=== PATIENT | female | born 1960 | race Caucasian/White ===

== ENCOUNTER 2021-01-18 19:33 | Inpatient (IN) | payer OTHER ==
[~2021-01-18] VITALS: Ht 160 cm; Wt 61.2 kg
== END 2021-01-19 16:05 | disposition left against medical advice (07) | DRG 310 ==
LOC: ER 19:33 → MEDI 01-19 08:38
PROVIDERS: ADMIT Internal Medicine; ATTEND Internal Medicine
PROC: B24BYZZ Ultrasonography of Heart with Aorta using Other Contrast (ICD-10-PCS; principal; 2021-01-19)
PROC: 4A12X4Z Monitoring of Cardiac Electrical Activity, External Approach (ICD-10-PCS; 2021-01-19)
DX: I47.1 Supraventricular tachycardia (principal); I49.8 Other specified cardiac arrhythmias; F41.8 Other specified anxiety disorders